=== PATIENT | male | born 1955 | race Caucasian/White ===

== ENCOUNTER 2016-06-10 09:49 | Inpatient (IN) | payer MEDICARE ==
[~2016-06-10] VITALS: Ht 182.9 cm; Wt 63.6 kg
[~2016-06-10 09:49] MED LIST: LEVAQUIN750 MG PO
[2016-06-10] MEDS ORDERED: ASPIRIN325 MG PO (10:03)
--- NOTE | 2016-06-10 10:04 | NUR ---
PT ARRIVED IN STABLE CONDITION VIA EMS FROM HOME. EKG PERFORMEED UPON ARRIVAL TO ED. PT RECEIVED 0.4 MG NTG EN ROUTE TO ED. PT TOOK 2 ASPIRIN AT HOME PRIOR TO EMS ARRIVAL
[2016-06-10 10:16] LABS: HEMATOCRIT 38.9 % (39.0-50.0); HEMOGLOBIN 13.7 g/dl (14.0-18.0); IMMATURE GRANULOCYTES 0.5 % (0.0-1.0); MEAN CORPUSCULAR HGB 34.9 pG CALC (26.0-32.0); MEAN CORPUSCULAR HGB CONC 35.2 g/L CALC (32.0-36.0); NEUT# 10.16 thou/uL (1.82-7.42); RED BLOOD COUNT 3.93 mill/uL (4.70-6.10)
[2016-06-10 10:35] LABS: ALBUMIN 3.7 g/dL (3.2-5.0); ALKALINE PHOSPHATASE 87 u/l (38-126); ANION GAP 16 (6-22 (CALC)); BILIRUBIN, TOTAL 0.7 mg/dL (0.0-1.4); BUN 10 mg/dL (9-20); BUN/CREATININE RATIO 19 (12-20 (CALC)); CALCIUM 8.4 mg/dL (8.4-10.2); CARBON DIOXIDE 23 mmol/l (22-30); CHLORIDE 100 mmol/l (95-108); CREATININE 0.5 mg/dL (0.7-1.3); GFR > 60 ML/MIN (>=60 (CALC)); GFR FOR AFR.AMER. > 60 ML/MIN (>=60 (CALC)); GLUCOSE 119 mg/dL (75-110); POTASSIUM 4.1 mmol/l (3.5-5.1); SGOT/AST 65 u/l (17-59); SGPT/ALT 53 u/l (21-72); SODIUM 135 mmol/l (137-146); TOTAL PROTEIN 7.1 g/dL (6.3-8.2)
[2016-06-10 10:47] LABS: MYOGLOBIN 23 ng/mL (0 - 121)
--- NOTE | 2016-06-10 12:35 | NUR ---
PT UPDATED ON KNOWN RESULTS FROM TESTING, RESTS IN THE STRETCHER IN NO DISTRESS.
--- NOTE | 2016-06-10 12:47 | NUR ---
PT REPORT RECEIVED FROM EVON MENDEZ. PT DENIES ANY CHEST PAIN AT THIS TIME
--- NOTE | 2016-06-10 13:05 | NUR ---
PTS AT BEDSIDE, FOOD TRAY ORDERED. NO DISTRESS NOTED.
[2016-06-10 13:59] LABS: URINE BLOOD DIPSTICK MODERATE (NEGATIVE); URINE CLARITY CLEAR; URINE COLOR YELLOW; URINE GLUCOSE - DIPSTICK NEGATIVE (NEGATIVE); URINE KETONE >=80 mg/dL (NEGATIVE); URINE LEUK ESTERASE NEGATIVE (NEGATIVE); URINE NITRITE - DIPSTICK NEGATIVE (Negative); URINE PROTEIN - DIPSTICK 30 mg/dL (NEG-TRACE); URINE SPECIFIC GRAVITY 1.025
[2016-06-10 14:11] LABS: URINE BILIRUBIN - DIPSTICK SMALL (NEGATIVE)
[2016-06-10 14:18] LABS: URINE SQUAMOUS EPITHELIAL CELL FEW EPI/hpf (0-FEW)
--- NOTE | 2016-06-10 14:28 | NUR ---
PT REMAINS CHEST PAIN FREE, NO COUGHING NOTED, VITAL SIGNS STABLE.
--- NOTE | 2016-06-10 17:04 | NUR ---
PT REPORT GIVEN TO LYDIA. PT TRANSFERRED TO MED SURG FLOOR WITH TELEMENTRY AND HIS SERVICE DOG RIDING ON STRETCHER, WITH HIM. NO PAIN AT THIS TIME. VITAL SIGNS STABLE
--- NOTE | 2016-06-10 17:22 | NUR ---
PT ARRIVED TO FLOOR VIA STRETCHER ACCOMPANIED BY ED STAFF X 1 @ 1705. PT REPORTS MODERATE RIGHT SIDED CHEST PAIN, WORSENED BY COUGHING OR DEEP BREATHING. REPORTING OF CONCERNS ENCOURAGED. PT ORIENTED TO ROOM AND EQUIPMENT. PLAN OF CARE DISCUSSED. PT'S SERIVCE DOG AT BEDSIDE. PT REPORTS DOG IS FOR PTSD. PT'S AT BEDSIDE ALSO. CALL LIGHT REVIEWED AND IN REACH. PT STATES UNDERSTANDING.
[2016-06-10 17:38] VITALS: BP 128/82
[2016-06-10 19:20] VITALS: BP 131/85
--- NOTE | 2016-06-10 20:00 | NUR ---
PATIENT RESTING IN BED AT THIS TIME. AWAKE ALERT AND ORIENTEDX3. S/O AT BEDSIDE WITH SERVICE DOG PRESENT. PATIENT WITH O2 VIA NASAL CANNULA IN PLACE AT 2LPM. PATIENT WITH EMS IV SITE TO LEFT AC WITH D51/2NS PATENT AND INFUSING AT 125CC/HR. SITE APPEARS HEALTHY AT THIS TIME. PATIENT VOIDING WU URINE IN URINAL. SAFETY PRECAUTIONS REINFORCED WITH PATIENT AND S/O. CALL LIGHT IN REACH. WILL CONT TO MONITOR.
--- NOTE | 2016-06-10 20:00 | NUR ---
PATIENT RESTING IN BED AT THIS TIME WITH EYES CLOSED-EASILY AROUSABLE. PATIENT IS AWAKE ALERT AND ORIENTED. PATIENT IS TACHYPENIC WITH RESP AT 32 AND SHALLOW. PATIENT IS TACHYCARDIC WITH HR-115. PATIENT IS HAVING PINK BLOOD TINGED SPUTUM. PATIENT CONT TO COMPLAIN OF LEFT SIDED CHEST PAIN EVEN AFTER PAIN MEDS IS AT 8/10. PATIENT WITH IV SITE TO LEFT AC WITH NS PATENT AND INFUSING AT 150CC/HR. SITE APPEARS HEALTHY AT THIS TIME. PATIENT VOIDING WU URINE IN URINAL. PATIENT WITH COLOSTOMY AND DOES OWN SELF COLOSTOMY CARE. O2 VIA NASAL CANNULA IN PLACE. SAFETY PRECAUTIONS REINFORCED. CALL LIGHT IN REACH. WILL CONT TO MONITOR.
--- NOTE | 2016-06-10 22:44 | NUR ---
PATIENT C/O SEVERE STABBING PAIN RIGHT C HEST AND BACK-8/10 ON PAIN SCALE. PATIENT MEDICATED WITH MORPHINE 2MG IVP FOR PAIN. S/O PROVIDED RECLINER TO SPEND THE NOIGHT. SERVICE DOG ALSO AT BEDSIDE. PATIENT WITH HISTORY OF PTSD. CALL LIGHT IN REACH. WILL CONT TO MONITOR.
[2016-06-11] VITALS (7 sets, daily range): BP systolic 113–132; BP diastolic 72–83
--- NOTE | 2016-06-11 00:04 | NUR ---
PATIENT POSITIONED ON SIDE AND STATES THAT HIS PAIN LEVEL IS AT 4/10 AT THIS TIME. NO FURTHER COMPLAINTS. S/O AT BEDSIDE IN RECLINER PROVIDED. CALL LIGHT IN REACH. WILL CONT TO MONITOR.
--- NOTE | 2016-06-11 02:08 | NUR ---
PATIENT GIVEN SNACK OF ICE CREAM PER PATIENT REQUEST. PATIENT CONT TO VOID IN URINE AND HIS URINE IS BECOMING LIGHT YELLOW IN COLOR. NO OTHER COMPLAINTS AT THIS TIME. CALL LIGHT IN REACH. WILL CONT TO MONITOR.
--- NOTE | 2016-06-11 04:31 | NUR ---
PATIENT C/O SEVERE RIGHT CHEST PAIN-8/10 ON PAIN SCALE. PATIENT MEDICATED WITH MORPHINE 2MG IVP ORDERED FOR PAIN. CALL LIGHT IN REACH. WILL CONT TO MONITOR.
[2016-06-11 06:49] LABS: ANION GAP 13 (6-22 (CALC)); BUN 11 mg/dL (9-20); BUN/CREATININE RATIO 18 (12-20 (CALC)); CALCULATED LDLCHOLESTEROL 58 mg/dL (62-129 (CALC)); CARBON DIOXIDE 28 mmol/l (22-30); CHLORIDE 98 mmol/l (95-108); CREATININE 0.6 mg/dL (0.7-1.3); GFR > 60 ML/MIN (>=60 (CALC)); GFR FOR AFR.AMER. > 60 ML/MIN (>=60 (CALC)); GLUCOSE 195 mg/dL (75-110); HDL CHOLESTEROL 65 mg/dL (>=40); POTASSIUM 4.7 mmol/l (3.5-5.1); SODIUM 134 mmol/l (137-146); TOTAL CHOLESTEROL 131 mg/dl (0-199); TOTAL TRIGLYCERIDES 38 mg/dl (30-149); VLDL CHOLESTROL 8 mg/dl (8-62 (CALC))
[2016-06-11 06:54] LABS: HEMATOCRIT 40.6 % (39.0-50.0); HEMOGLOBIN 14.2 g/dl (14.0-18.0); IMMATURE GRANULOCYTES 0.5 % (0.0-1.0); MEAN CELL VOLUME 100.2 fL CALC (80.0-100.0); MEAN CORPUSCULAR HGB 35.1 pG CALC (26.0-32.0); NEUT# 10.5 thou/uL (1.82-7.42); RED BLOOD COUNT 4.05 mill/uL (4.70-6.10); RED CELL DISTRI WIDTH 13.7 % (11.5-15.5)
--- NOTE | 2016-06-11 08:46 | NUR ---
Pt resting quietly in bed. No resp. distress noted. No complaints voiced. Assessment completed. IV fluids infusing in left AC site without redness or edema noted. Call light within reach.
--- NOTE | 2016-06-11 11:55 | NUR ---
S: CALVIN CLIFFORD is a 60 M who presents with chest pain with possible sepsis. He has a history of alcohol abuse, syncope and chest pain. All medications in patient's chart were reviewed. O: VS: BP 132/79 mmHg, P 85 beats/min, RR 32 breaths/min, T 98.7 F W 63 kg, Ht 60 in Scr= 0.6, CrCl = 118 ml/min A: Blood culture is pending P: Patient is on Zosyn 3.375 gm IV Q6H Vancomycin ordered for pharmacy to dose. Start Vancomycin 1250mg IV Q12H. Vancomycin trough is drawn 30 min before the evening dose(2145) on 06/12/16. Vancomycin goal trough is between <15-20 mcg/ml>. Pharmacy will follow and or advise on antibiotics use as needed.
--- NOTE | 2016-06-11 12:00 | NUR ---
Pt continues to rest quietly in bed. No resp. distress noted. No change in assessment. Will continue to monitor. Call light within reach.
--- NOTE | 2016-06-11 17:19 | NUR ---
Pt continues to rest quietly in bed. No resp. distress noted. No change in assessment. Will continue to monitor. Call light within reach.
--- NOTE | 2016-06-11 19:30 | NUR ---
PATIENT RESTING IN BED AT THIS TIME WITH O2 VIA NASAL CANNULA IN PLACE AT 2LPM. PATIENT IS AROUSABLE ALERT AND ORIENTEDX3. S/O APPEARS SLEEPING IN CHAIR. SERVICE DOG AT BEDSIDE. PATIENT WITH NO COMPLAINTS AT THIS TIME. PATIENT WITH IV SITE TO LEFT AC-APPEARS HEALTHY AT THIS TIME. CALL LIGHT IN REACH. WILL CONT TO MONITOR.
--- NOTE | 2016-06-11 21:25 | NUR ---
PATIENT C/O SHARP RIGHT SIDE CHEST PAIN-MEDICATED WITH MORPHINE 2MG IVP ORDERED. PATIENT IS VOIDING CLEAR YELLOW URINE IN URINE. CONT TO WAIT FOR CTA ORDERED. CALL LIGHT IN REACH. WILL CONT TO MONITOR.
--- NOTE | 2016-06-11 22:27 | NUR ---
PATIENT TO RADIOLOGY VIA WHEELCHAIR FOR CT OF [place].
--- NOTE | 2016-06-11 22:45 | NUR ---
PATIENT RETURNED FROM CT VIA WHEELCHAIR. ASSISTED BACK TO BED. CALL LIGHT IN REACH. S/O SLEEPING IN RECLINER. SERVICE DOG AT BEDSIDE. WILL CONT TO MONITOR.
--- NOTE | 2016-06-12 00:05 | NUR ---
PATIENT RESTING IN BED AT THIS TOIME. ZOSYN HUNG ORDERED. LOVENOX GIVEN. CALL LIGHT IN REACH. WILL CONT TO MONITOR.
--- NOTE | 2016-06-12 01:04 | NUR ---
EMS IV SITE D/C WITH CATH INTACT. NEW IV SITE STARTED TO LEFT FOREARM-#20 GAUGE WITH GOOD BLOOD RETURN. PATIENT C/O RIGHT SIDE CHEST PAIN-7/10 ON PAIN SCALE. PATIENT MEDICATED WITH MORPHINE 2MG IVP ORDERED. SAFETY PRECAUTIONS REINFORCED. CALL LIGHT IN REACH. WILL CONT TO MONITOR.
[2016-06-12 03:45] VITALS: BP 118/81
--- NOTE | 2016-06-12 04:56 | NUR ---
PATIENT APPEARS SLEEPING AT THIS TIME. CALL LIGHT IN REACH. WILL CONT TO MONITOR.
[2016-06-12 05:36] LABS: HEMATOCRIT 39.8 % (39.0-50.0); HEMOGLOBIN 13.7 g/dl (14.0-18.0); IMMATURE GRANULOCYTES 0.5 % (0.0-1.0); MEAN CELL VOLUME 101.8 fL CALC (80.0-100.0); MEAN CORPUSCULAR HGB CONC 34.4 g/L CALC (32.0-36.0); NEUT# 11.93 thou/uL (1.82-7.42); RED BLOOD COUNT 3.91 mill/uL (4.70-6.10); RED CELL DISTRI WIDTH 13.5 % (11.5-15.5)
[2016-06-12 05:46] LABS: BUN 13 mg/dL (9-20); BUN/CREATININE RATIO 21 (12-20 (CALC)); CARBON DIOXIDE 29 mmol/l (22-30); CREATININE 0.6 mg/dL (0.7-1.3); GFR > 60 ML/MIN (>=60 (CALC)); GFR FOR AFR.AMER. > 60 ML/MIN (>=60 (CALC)); GLUCOSE 182 mg/dL (75-110); POTASSIUM 4.6 mmol/l (3.5-5.1); SODIUM 137 mmol/l (137-146)
[2016-06-12 05:49] LABS: ANION GAP 13 (6-22 (CALC)); CHLORIDE 100 mmol/l (95-108)
[2016-06-12 08:50] VITALS: BP 126/76
--- NOTE | 2016-06-12 09:09 | NUR ---
Pt resting quietly in bed. No resp. distress noted. Assessment completed. Alert and oriented. Skin warm and dry. Color pink. Girlfriend at bedside. Will continue to monitor. Call light within reach.
[2016-06-12 11:43] VITALS: BP 110/71
--- NOTE | 2016-06-12 12:00 | NUR ---
PT RESTING QUIETLY IN BED. SLIGHT ANXIOUS REGARDING RESULTS FROM CT SCAN. INSTRUCTED PT THAT HE NEEDS TO WAIT TO SEE WHAT HIS PHYSICIAN PLAN OF CARE IS BEFORE HE GETS TO ANXIOUS. WE CANNOT CHANGE THE RESULTS OR DO ANYTHING DIFFERENT TO CHANGE THEM. WE MUST EXCEPT THE VERDICT AND MAKE THE CHANGE ACCORDINGLY. PT VERBALIZED UNDERSTANDING. WILL CONTINUE TO MONITOR. SALINE LOCK REMAINS INTACT. SITE WITHOUT REDNESS OR EDEMA NOTED. CALL LIGHT WITHIN REACH.
[2016-06-12 15:07] VITALS: BP 117/73
--- NOTE | 2016-06-12 18:23 | NUR ---
PT CONTINUES TO REST QUIETLY IN BED. NO RESP DISTRESS NOTED. NO CHANGE IN ASSESSMENT. NO COMPLAINTS VOICED. WILL CONTINUE TO MONITOR. CALL LIGHT WITHIN REACH.
[2016-06-12 19:05] VITALS: BP 111/76
--- NOTE | 2016-06-12 23:05 | NUR ---
C/O RIGHT CHEST PAIN 8/10, MEDICATED WITH MORPHINE 2MG IV, VANCOMYCIN INFUSING TO LFA WITH NO COMPLICATIONS. RESPIRATIONS EVEN AND ULABORED. CALL LIGHT IN REACH.
[2016-06-12 23:08] VITALS: BP 119/81
--- NOTE | 2016-06-13 01:00 | NUR ---
RESTING IN BED WITH EYES CLOSED, RESPIRATIONS EVEN AND UNLABORED, CALL LIGHT IN REACH.
[2016-06-13 04:12] VITALS: BP 130/70
--- NOTE | 2016-06-13 05:04 | NUR ---
C/O RIGHT CHEST PAIN 10/06, MEDICATED WITH MORPHINE 2MG IV. RESPIRATIONS EVEN AND UNLABORED ON O2 @2L VIA NC.
[2016-06-13 05:22] LABS: ANION GAP 15 (6-22 (CALC)); BUN 14 mg/dL (9-20); BUN/CREATININE RATIO 22 (12-20 (CALC)); CARBON DIOXIDE 29 mmol/l (22-30); CHLORIDE 99 mmol/l (95-108); CREATININE 0.6 mg/dL (0.7-1.3); GFR > 60 ML/MIN (>=60 (CALC)); GFR FOR AFR.AMER. > 60 ML/MIN (>=60 (CALC)); GLUCOSE 185 mg/dL (75-110); POTASSIUM 4.3 mmol/l (3.5-5.1); SODIUM 139 mmol/l (137-146)
[2016-06-13 05:34] LABS: HEMATOCRIT 40.4 % (39.0-50.0); HEMOGLOBIN 13.9 g/dl (14.0-18.0); IMMATURE GRANULOCYTES 0.7 % (0.0-1.0); MEAN CELL VOLUME 103.3 fL CALC (80.0-100.0); MEAN CORPUSCULAR HGB 35.5 pG CALC (26.0-32.0); MEAN CORPUSCULAR HGB CONC 34.4 g/L CALC (32.0-36.0); NEUT# 11.47 thou/uL (1.82-7.42); RED BLOOD COUNT 3.91 mill/uL (4.70-6.10); RED CELL DISTRI WIDTH 13.6 % (11.5-15.5)
[2016-06-13 07:27] VITALS: BP 120/86
--- NOTE | 2016-06-13 07:41 | NUR ---
PT UP IN ROOM, NO RESP. DISTRESS NOTED. PT ANXIOUS TO GO HOME. INSTRUCTED PT THAT THE DOCTOR WILL MAKE ROUNDS. SALINE LOCK INTACT. SITE WITHOUT REDNESS OR EDEMA NOTED. ASSESSMENT COMPLETE. SIGNIFICANT OTHER AT BEDSIDE. WILL CONTINUE TO MONITOR. CALL LIGHT WITHIN REACH.
--- NOTE | 2016-06-13 08:43 | NUR ---
Vancomycin dosing Current dose being given: 1250 mg Current dosing interval: 12 hrs Current infusion time (hrs): 2 Trough level obtained: 7 mcg/ml Timing of trough - Number of hours before next dose: 2.5 Hrs Desired peak: 30 mcg/ml Desired trough: 15 mcg/ml Estimated PK Parameters: New rate constant (libertad): 0.169 hr-1 New half-life: 4.10 Hours New Vd from levels: 44.80 Liters (0.7 L/kg) Vancomycin 1000 mg q 6 hrs. Infuse over ONE HOUR (as pt also on Zosyn q6h) Expected Cpeak: 32.2 mcg/ml Expected Ctrough: 13.8 mcg/ml Next trough to be drawn on 06/14/16 at 0330.
[2016-06-13] MEDS ORDERED: LIBRIUM25 M1 PO (09:58)
[2016-06-13] MEDS ORDERED: TRAMADOL HCL50 MG PO (09:58)
[2016-06-13] MEDS ORDERED: DOXYCYC MONO100 M3 PO (09:58)
[2016-06-13] MEDS ORDERED: AUGMENTIN875TAB PO (09:58)
[2016-06-13] MEDS ORDERED: GNP NICOTI21 MG/24 H TD (10:02)
--- NOTE | 2016-06-13 13:39 | NUR ---
Discharge instructions given. Patient verbalizes understanding of same. Discharged in stable condition via Wheelchair to Home with friend. All belongings sent with pt. DISCHARGE INSTRUCTIONS GIVEN WITH VERBAL UNDERSTANDING. SALINE LOCK REMOVED, SITE WITHOUT REDNESS OR EDEMA NOTED. DRESSING APPLIED. PT ALERT AND ORIENTED, STEADY GAIT. AMBULATING IN HALLWAYS PRIOR TO DISCHARGE. NO RESP. DISTRESS NOTED. NO COMPLAINTS VOICED. PT DISCHARGE TO HOME VIA WHEELCHAIR.
== END 2016-06-13 13:29 | disposition home or self-care (01) | DRG 871 ==
LOC: ENPENDDIS → ED 09:49 → ED-I 13:21 → ED 14:15 → MS2 14:16
PROVIDERS: Emergency Medicine; ADMIT Internal Medicine; ATTEND Internal Medicine
DX: A41.9 Sepsis, unspecified organism (principal); J18.9 Pneumonia, unspecified organism; I10 Essential (primary) hypertension; F17.210 Nicotine dependence, cigarettes, uncomplicated; F10.20 Alcohol dependence, uncomplicated; F43.10 Post-traumatic stress disorder, unspecified; R91.8 Other nonspecific abnormal finding of lung field; Z86.73 Personal history of transient ischemic attack (TIA), and cerebral infarction without residual deficits
CPT/HCPCS: G0378; J1650; J3370